=== PATIENT | female | born 1995 | race Caucasian/White ===

== ENCOUNTER 2017-04-14 13:19 | Emergency (ER) | payer MEDICAID ==
[~2017-04-14] VITALS: Ht 149.9 cm; Wt 47.5 kg
[2017-04-14 13:22] VITALS: BP 116/69; PULSE 87; RESP 16; TEMP 98.9; O2SAT 100
[2017-04-14 13:58] LABS: BLOOD, URINE NEG (NEG); GLUCOSE,URINE NEG (NEG); KETONE, URINE NEG (NEG); PH, URINE 5.5 (5.0-8.5)
[2017-04-14 13:59] LABS: NITRITE,URINE POS (NEG)
[2017-04-14 14:10] LABS: METHOD OF COLLECTION CLEAN CATCH; URINE COLOR AMBER (YELLW/STRAW)
[2017-04-14 14:11] LABS: BACTERIA, URINE MOD /hpf; COMMENT (UR) CULTURE INDICATED; COMMENT2 (UR) MUCOUS PRESENT; CULTURE IF INDICATED CULTURE INDICATED; RBC, URINE 0-3 /hpf (0-3)
[2017-04-14] MEDS ORDERED: CEPH-460 PO (14:24)
[2017-04-14] MEDS ORDERED: PHEN0.4T PO (14:25)
--- NOTE | 2017-04-14 14:31 | PD ---
HPI Chief Complaint: Complaint Time Seen by Provider: 14:26 Travel History International Travel<30 days: No Contact w/Intl Traveler<30days: No Traveled to known affect area: No History of Present Illness HPI 21-year-old female presents to the emergency room for evaluation of dysuria, urgency, and frequency for the past 4 days. Patient states symptoms started shortly after she took a bath and did not rinse off. Last menstrual cycle was 2 weeks ago. No concern for STD. Patient denies abnormal vaginal discharge, abdominal pain, flank pain, nausea, vomiting, fever, chills. PFSH Past Medical History Diminished Hearing: No Migraines: Yes Tetanus Vaccination: < 5 Years Influenza Vaccination: No ?: Unknown LMP: MONTH AGO Social History Alcohol Use: Yes (RARE) Tobacco Use: No Substance Use: No Allergies-Medications (Allergen,Severity, Reaction): Coded Allergies: No Known Allergies (Unverified , 04/14/17) Reported Meds & Prescriptions Reported Meds & Active Scripts Active Keflex (Cephalexin) 500 Mg Capsule 500 Mg PO Q12HR 7 Days Review of Systems Except as stated in HPI: all other systems reviewed are Neg Physical Exam Narrative GENERAL: Well-nourished, well-developed female in no acute distress. Afebrile. Ambulatory. SKIN: Focused skin assessment warm/dry. HEAD: Normocephalic. EYES: No scleral icterus. No injection or drainage. NECK: Supple, trachea midline. No JVD or lymphadenopathy. CARDIOVASCULAR: Regular rate and rhythm without murmurs, gallops, or rubs. RESPIRATORY: Breath sounds equal bilaterally. No accessory muscle use. GASTROINTESTINAL: Abdomen soft, non-tender, nondistended. BACK: Nontender without obvious deformity. No CVA tenderness. Data Data Last Documented VS Vital Signs Date Time Temp Pulse Resp B/P Pulse Ox O2 Delivery O2 Flow Rate FiO2 04/14/17 13:40 20 04/14/17 13:22 98.9 87 116/69 100 Room Air Orders Urinalysis - C+S If Indicated (04/14/17 13:23) Ed Urine Pregnancytest Poc (04/14/17 13:47) Urine Culture (04/14/17 13:45) Labs Laboratory Tests Test 04/14/17 13:45 Urine Collection Type CLEAN CATCH Urine Color JAYDEN Urine Turbidity MOD Urine pH 5.5 Urine Specific [place] 1.025 Urine Protein TRACE mg/dL Urine Glucose (UA) NEG mg/dL Urine Ketones NEG mg/dL Urine Occult Blood NEG Urine Nitrite POS Urine Bilirubin NEG Urine Leukocyte Esterase SMALL Urine RBC 0-3 /hpf Urine WBC 20-24 /hpf Urine WBC Clumps FEW Urine Squamous Epithelial 6-8 /hpf Cells Urine Amorphous Sediment FEW Urine Bacteria MOD /hpf Microscopic Urinalysis Comment CULTURE INDICATED Urine Collection Time 1345 MDM Medical Decision Making Medical Screen Exam Complete: Yes Emergency Medical Condition: Yes Medical Record Reviewed: Yes Differential Diagnosis UTI, STD, chemical dysuria Narrative Course 21-year-old female presents to the emergency room for evaluation of dysuria, urgency, and frequency for the past 4 days. No systemic signs of infection. Vital signs stable. No flank pain or abdominal pain. No unusual vaginal discharge or concern for STD. test is negative. UA shows evidence of acute infection. Patient discharged with prescriptions for Keflex and Pyridium. Told to follow up with a primary care physician and return for worsening symptoms. She understands and agrees to plan. Diagnosis Primary Impression: Urinary tract infection Qualified Code: N30.00 - Acute cystitis without hematuria Referrals: Primary Care Physician Patient Instructions: General Instructions, Urinary Tract Infection in Women ( ED) Additional Instructions: Rest and drink plenty of fluids. Keflex as directed, until gone. Pyridium as directed, as needed for pain. Take ibuprofen with food as directed, as needed for pain. Follow-up with a primary care physician. Return to the emergency room for worsening symptoms. Scripts Phenazopyridine (Pyridium)100 Mg [id number] Mg PO Q8HR #6 TAB Ref 0 Prov:Roly Youssef MD 04/14/17 Cephalexin (Keflex)500 Mg [id number] Mg PO Q12HR 7 Days Ref 0 Prov:Roly Youssef MD 04/14/17 Disposition: 01 DISCHARGE HOME Condition: Stable Stefanie Nicolas Apr 14, 2017 14:31
== END 2017-04-14 14:58 | disposition home or self-care (01) ==
LOC: PHEFT 13:19
DX: N30.00 Acute cystitis without hematuria (principal); B96.20 Unspecified Escherichia coli [E. coli] as the cause of diseases classified elsewhere; Z86.69 Personal history of other diseases of the nervous system and sense organs
CPT/HCPCS: 81001; 84703; 87077; 87086; 87186; 99284

== ENCOUNTER 2017-12-15 13:57 | Emergency (ER) | payer MEDICAID, OTHER ==
[~2017-12-15] VITALS: Ht 149.9 cm; Wt 49.0 kg
[~2017-12-15 13:57] MED LIST: CEPH-460 PO; PHEN0.4T PO
[2017-12-15 14:12] VITALS: BP 125/85; PULSE 110; RESP 16; TEMP 99.8; O2SAT 100
--- NOTE | 2017-12-15 14:20 | PD ---
HPI Chief Complaint: ENT Complaint Time Seen by Provider: 14:19 Travel History International Travel<30 days: No Contact w/Intl Traveler<30days: No Traveled to known affect area: No History of Present Illness HPI 2-year-old female presents emergency department with sudden onset throat pain, fever, and body aches. Patient states history of recurrent tonsillitis. Throat pain is currently 8 out of 10. She states she feels like she "swallowed some glass". Patient denies nausea or vomiting. No cough or shortness of breath or chest pain. Patient did take some ibuprofen around 10: 00 this morning which did help, but symptoms now worse. She has no known drug allergies PFSH Past Medical History Diminished Hearing: No Migraines: Yes Social History Alcohol Use: Yes (RARE) Tobacco Use: No Substance Use: No Allergies-Medications (Allergen,Severity, Reaction): Coded Allergies: No Known Allergies (Unverified , 04/14/17) Reported Meds & Prescriptions Reported Meds & Active Scripts Active Ibuprofen 600 Mg Tab 600 Mg PO Q6H PRN Amoxicillin 875 Mg Tab 875 Mg PO BID 10 Days Pyridium (Phenazopyridine HCl) 100 Mg Tab 100 Mg PO Q8HR Keflex (Cephalexin) 500 Mg Capsule 500 Mg PO Q12HR 7 Days Review of Systems Except as stated in HPI: all other systems reviewed are Neg General / Constitutional: Positive: Fever, Chills Eyes: No: Visual changes HENT: Positive: Sore Throat, Rhinitis, Rhinorrhea, Congestion, Earache, No: Headaches, Vertigo, Lightheadedness, Nosebleed, Neck Stiffness, Neck Pain, Gingival Bleeding, Dental Difficulties, Ear Discharge Cardiovascular: No: Chest Pain or Discomfort Respiratory: No: Cough, Shortness of Breath, Wheezing Gastrointestinal: No: Nausea, Vomiting, Diarrhea, Abdominal Pain Genitourinary: No: Dysuria Musculoskeletal: No: Pain Skin: No Rash Neurologic: No: Weakness Psychiatric: No: Depression Endocrine: No: Polydipsia Hematologic/Lymphatic: No: Easy Bruising Physical Exam Narrative GENERAL: Patient appears in mild to moderate distress. She is tearful from the pain. SKIN: Warm and dry. Normal color. Normal turgor. No rash. HEAD: Atraumatic. Normocephalic. EYES: Pupils equal and round. No scleral icterus. No injection or drainage. ENT: No nasal bleeding or discharge. Mucous membranes pink and moist. TMs are both dull bilaterally with some injection on the right. No sinus tenderness to palpation or percussion. Patient is somewhat hoarse muffled voice with fetid breath noted. Patient has bilateral tonsillitis with erythema and exudate present. NECK: Trachea midline. Supple with mild to moderate anterior tender lymphadenopathy. CARDIOVASCULAR: Regular rate and rhythm. RESPIRATORY: No accessory muscle use. Clear to auscultation. Breath sounds equal bilaterally. GASTROINTESTINAL: Abdomen soft, non-tender, nondistended. Hepatic and splenic margins not palpable. MUSCULOSKELETAL: Extremities without clubbing, cyanosis, or edema. No obvious deformities. NEUROLOGICAL: Awake and alert. No obvious cranial nerve deficits. Motor grossly within normal limits. Five out of 5 muscle strength in the arms and legs. Normal speech. PSYCHIATRIC: Appropriate mood and affect; insight and judgment normal. Data Data Last Documented VS Vital Signs Date Time Temp Pulse Resp B/P (MAP) Pulse Ox O2 Delivery O2 Flow Rate FiO2 12/15/17 14:12 99.8 110 16 125/85 (98) 100 Orders Orders Amoxicillin (Trimox) (12/15/17 14:30) Ibuprofen (Motrin) (12/15/17 14:30) Ed Discharge Order (12/15/17 14:31) MDM Medical Decision Making Medical Screen Exam Complete: Yes Emergency Medical Condition: Yes Differential Diagnosis Recurrent tonsillitis. Strep throat. Mononucleosis Narrative Course I am going to treat empirically with amoxicillin 875 twice daily 10 days. Patient also given ibuprofen 600 mg 4 times daily #40. Work note for today and tomorrow was given. Patient is to follow-up if symptoms do not improve or worsen as needed. Diagnosis Primary Impression: Tonsillitis Patient Instructions: General Instructions, Tonsillitis (DC) Departure Forms: Work Release Enter return to work date: Dec 17, 2017 Additional Instructions: Patient is given Bactrim DS twice daily 10 days. Patient is given Keflex 500 mg 3 times daily 10 days Patient is given ibuprofen 800 mg 3 times daily with food as needed Patient is instructed to use hot compresses to the affected area frequently through the day. Patient is to follow-up if drainable abscess develops. Med/Other Pt SpecificInfo: Prescription(s) given Scripts Ibuprofen (Ibuprofen) 600 Mg Tab 600 MG PO Q6H Y for Pain/Inflammation, #40 TAB 0 Refills Prov: Francisco Javier Bae MD 12/15/17 Amoxicillin (Amoxicillin) 875 Mg Tab 875 MG PO BID for Infection for 10 Days, #20 TAB 0 Refills Prov: Francisco Javier Bae MD 12/15/17 Disposition: 01 DISCHARGE HOME Condition: Stable Pawan Sanchez Dec 15, 2017 14:20
[2017-12-15] MEDS ORDERED: IBUP-232 PO (14:24)
[2017-12-15] MEDS ORDERED: AMOX875T PO (14:24)
[2017-12-15] MEDS ORDERED: IBUPROFEN 800 MG TAB PO ONE (14:30)
[2017-12-15] MEDS ORDERED: AMOXICILLIN 875 MG TAB PO ONE (14:30)
== END 2017-12-15 15:01 | disposition home or self-care (01) ==
LOC: NEPK 13:57
DX: J03.90 Acute tonsillitis, unspecified (principal)
CPT/HCPCS: 99283